=== PATIENT | male | born 1985 | race African-American/Black ===

== ENCOUNTER 2025-08-31 09:24 | Emergency (ER) | payer SELFPAY ==
[2025-08-31] VITALS (9 sets, daily range): BP systolic 118–139; BP diastolic 70–87; BMI 28.8
--- NOTE | 2025-08-31 10:24 | ED.GENMED ---
History of Present Illness
General
Chief Complaint: Weakness
Source: patient and family
Exam Limitations: none
Time Seen by Provider: 08/31/25 09:59
Nursing documentation reviewed up to this point in time: agreed with
History of Present Illness
History of Present Illness:
Patient is a healthy 40-year-old male who presents to the emergency department for evaluation of multiple complaints. His patient describes approximately 4 weeks of progressively worsening weakness, fatigue, lightheadedness. He also describes
diffuse joint pain in his bilateral lower extremities. In addition, he reports feeling short of breath with very minimal exertion. Patient denies any fever, productive cough, headache, or neck pain. No abdominal pain, vomiting, or diarrhea. He
did have 2 days of chest pain however this resolved yesterday.
Patient symptoms started while he was visiting family in [facility] approximately 4 weeks ago. He then returned to the [facility] 1 week after symptoms began. He did take prophylactic medication for malaria. Patient denies any known bug bites
or rashes.
He denies any history of similar symptoms. No known sick contacts.
Review of Systems
Review of Systems
Allergies reviewed?: Yes
All Other Systems: ROS reviewed and negative except as documented in HPI and ROS
Phy Exam
Physical Exam
Physical Exam:
Vitals: Patient's vital signs are stable. Afebrile
General: Patient is in no apparent distress
Skin: Warm and dry, no rashes or lesions
Head: Normocephalic, atraumatic
Eyes: Sclera nonicteric. EOMs intact. No nystagmus.
Throat: Protecting airway
Neck: Normal ROM, no cervical spine tenderness, no meningismus
Cardiac: Regular rate and rhythm, no murmurs.
Pulm: Normal respiratory effort. Lungs clear bilaterally
Abdomen: Abdomen soft without any areas of focal tenderness on exam.
Extremities: No evidence of cyanosis or edema. Strength 5/5 in bilateral upper and lower extremities
Neuro: AAOx3. Grossly intact
Psychiatric: Normal affect.
Course
Orders/Labs/Results
Orders:
Orders
08/31/25 10:16
0.9% Sodium Chloride 1000 ml [Nss] 1,000 ml IV BOLUS
08/31/25 10:17
Electrocardiogram (*1) Urgent
Reason for Study: Fatigue / Weakness
EKG- Treatment ONCE
08/31/25 10:19
Ketorolac [Toradol] 15 mg IV NOW STA
08/31/25 11:01
COVID-19 Antigen Urgent
Source: Nasal Swab
CPK [Creatine Phosphokinase] Urgent
Complete Blood Count/With Diff Urgent
Comprehensive Metabolic Panel Urgent
D-Dimer Urgent
Lyme Progressive Urgent
Monotest Urgent
Troponin I Urgent
Influenza A+B Rapid Molecular Urgent
MAUREEN Source: Nasal Swab
Specimen Description:
Respiratory Syncytial Virus Urgent
MAUREEN Source: Nasal Swab
Specimen Description:
Date Specimen was Collected: 08/31/25
Time Specimen was Collected: 10:46
08/31/25 11:36
Blood Parasites Urgent
MAUREEN Source: Blood/Venous
Specimen Description:
08/31/25 11:46
CR Chest - 2 Views Urgent
Comment:
Reason For Exam: SOB, weakness
08/31/25 12:17
Urinalysis Reflex To Culture Urgent
Date Specimen was Collected: 08/31/25
Time Specimen was Collected: 12:11
Urine Microscopic Reflex Cult Urgent
08/31/25 13:42
Renal Only US [US Renal Only W/O Bladder] Urgent
Comment:
Reason For Exam: elevated creatinine, proteinuria
Abnormal Lab Results
08/31/25 08/31/25
11:01 12:17
MCHC 32.9 L g/dL
(33.0-37.0)
Monocytes % 11.4 H %
(1.7-9.3)
Creatinine 1.4 H mg/dL
(0.7-1.3)
Glucose 100 H mg/dl
(70-99)
Creatine Kinase 374 H U/L
(55-170)
Total Protein 9.0 H g/dl
(6.3-8.2)
Urine Bacteria (Reflex) Few A
(Negative)
Urine Albumin (Reflex) 2+ A
(Neg - Trace)
08/31/25 11:01
08/31/25 11:01
Vital Signs
Initial and Last Documented VS:
Initial Vital Signs
Temp Pulse Resp BP Pulse Ox
98.3 F 67 16 139/78 100
08/31/25 09:25 08/31/25 09:25 08/31/25 09:25 08/31/25 09:25 08/31/25 09:25
Last Documented Vital Signs
Temp Pulse Resp BP Pulse Ox
98.3 F 63 17 126/70 100
08/31/25 09:25 08/31/25 16:15 08/31/25 16:15 08/31/25 16:00 08/31/25 16:15
MDM/Problems Addressed
Differential Diagnosis Includes:
Not limited to: Viral illness, acute dehydration, parasitic/tickborne illness, pericarditis, myocarditis, etc.
MDM/Problems Addressed:
40-year-old male with a few weeks of vague symptoms including fatigue, diffuse joint pain, lightheadedness. No fever or headaches. No new rash. No G.I. symptoms. He did recently travel to [place], however took prophylactic antibiotics during travel.
Vitals stable. Physical exam as above.
Patient has no rash. He has no meningeal signs. Abdomen is benign. He has no neurologic deficits.
Differential broad. Will check labs, viral studies, tick borne/parasite smears. Given reported mild SOB and recent travel � will screen with d-dimer. Will give IV fluids, Toradol, and reassess.
Thorough work up in emergency department largely unremarkable. Blood parasite/Lyme disease pending. He did have mild elevation in CPK and creatinine � possibly indicating dehydration. With 2+ protein noted I did discuss outpatient f/u to repeat UA
and r/o underlying renal disorder. Due to significant patient concern� a renal US was obtained, which shows no acute abnormalities.
He received a liter of IV fluids and Toradol. His symptoms have improved. No clear indication for admission to hospital as he is afebrile, nontoxic appearing, and hemodynamically stable. He is tolerating oral intake.
Will discharge home with close outpatient follow up with [facility] for consideration for specialists referral to r/o underlying rheumatologic vs renal disorder. Very strict return precautions discussed. Patient comfortable with plan.
Chronic conditions affecting care:
N/A
Acute Exacerbation and/or Progression of Chronic Illness:
N/A
*Radiology
Radiology exam reviewed: radiology read reviewed
*Pulse Oximetry
SaO2: 100
Oxygen Mode of Delivery: Room air
Patient hypoxic: no
*Piercing Artist Interpretation
Rate: normal
Interpretation: normal
Heart Rate: 65
Rhythm: sinus
*Critical Care Note
Total Time (30-74mins, 75-104mins- exclusive of procedures): Not Applicable
ED Attending Note
-
Portions of this chart may have been created with voice recognition software.� Occasional wrong word or��sound alike� substitutions may have occurred due to the inherent limitations of voice recognition software.
Discharge Plan
Departure
Patient Disposition: Home (Routine Discharge)
Date of Disposition: 08/31/25
Time of Disposition: 15:53
Patient with high blood pressure during this ER visit?: Yes
Condition: Good
Discharge Problem:
Fatigue, Joint pain
Instructions: Generalized Weakness (DC)
Referrals:
[facility] [Outside]
NONE,* [Family Provider, Internal Medicine]
Activity Restrictions/Additional Instructions:
RETURN TO THE EMERGENCY DEPARTMENT WITH ANY FEVERS, SEVERE HEADACHE OR NECK PAIN, SEVERE ABDOMINAL PAIN, INABILITY TO AMBULATE, INABILITY TO PRODUCE URINE, WORSENING IN CURRENT SYMPTOMS, OR ANY OTHER CONCERNS
- Your kidney function was mildly elevated today in the emergency department and you were found to have a small amount of protein in her urine. Please follow-up with the [facility] to establish further follow-up with nephrology.
- Your chest x-ray and kidney ultrasound showed no acute abnormalities. Your viral studies were negative.
- It is very important to stay well-hydrated. Please take Motrin as needed for pain.
- We will contact you if your additional testing comes back positive.
- Please follow-up with the [facility] in a few days for further evaluation and management and to ensure that your symptoms are improving
Monitor your symptoms very closely and return to the emergency department with any acute worsening/new symptoms or any other concerns
Interventions
Interventions:
*Risk Screen - Suicide Last Done: 08/31/25 11:12
*General Assessment Last Done: 08/31/25 11:12
*Neglect/Abuse Screening Last Done: 08/31/25 11:12
*ED COVID-19 Vaccine History Last Done: 08/31/25 11:12
*ED Influenza Vaccine History Last Done: 08/31/25 11:12
[facility] Fall Risk Assessment Tool Last Done: 08/31/25 11:10
*Nursing Disposition Last Done: 08/31/25 16:34
ED- Cardiac Assessment Last Done: 08/31/25 11:10
ED- Neurological Assessment Last Done: 08/31/25 11:10
ED- Pulmonary Assessment Last Done: 08/31/25 11:10
Discharge Date and Time
Discharge Date/Time: 08/31/25 16:36
Print Language: LATVIAN
[2025-08-31 11:16] LABS: Hematocrit 41.6 % (39.0-52.0); Hemoglobin 13.7 g/dL (13.0-18.0); Mean Corp Hgb Conc. 32.9 g/dL (33.0-37.0); Mean Corpuscular Volume 86.7 fL (80.0-94.0); Nucleated Red Blood Cells % 0 % (-); Platelet Count 160 10^3/uL (130-400); Red Cell Dist. Width 14.2 % (11.5-14.5)
[2025-08-31] MEDS: TORADOL 15 MG IV (11:22)
[2025-08-31] MEDS: NSS 1000 IV (11:24)
[2025-08-31 11:30] LABS: COVID-19 Antigen Negative (Negative)
[2025-08-31 11:31] LABS: D-Dimer 0.44 ug/mlFEU (0.00-0.50)
[2025-08-31 11:35] LABS: ALT (SGPT) 32 U/L (0-50); AST (SGOT) 27 U/L (17-59); Albumin 4.8 g/dl (3.5-5.0); Alkaline Phosphatase 42 U/L (38-126); Blood Urea Nitrogen 14 mg/dl (9-20); Calcium 9.3 mg/dl (8.4-10.2); Carbon Dioxide 28 mmol/L (22-30); Chloride 103 mmol/L (98-107); Glucose 100 mg/dl (70-99); Potassium 4.1 mmol/L (3.5-5.1); Sodium 136 mmol/L (135-145); Total Protein 9.0 g/dl (6.3-8.2); eGFR > 60.00
--- NOTE | 2025-08-31 11:43 | EDRN ---
Pt administered cup and wipes for urine sample
[2025-08-31 11:45] LABS: Troponin I < 0.012 ng/ml
[2025-08-31 12:37] LABS: Urine Character Clear (Clear)
[2025-08-31 13:13] LABS: Urine Red Blood Cell 0-2 /HPF (0-2)
[2025-08-31 13:14] LABS: Urine White Cell 0-2 /HPF (0-5)
== END 2025-08-31 16:36 | disposition home or self-care (01) ==
LOC: EMR 09:24
PROVIDERS: Physician Assistant; EMERGENCY PHYSICIAN Student in an Organized Health Care Education/Training Program
DX: R53.1 Weakness (principal); R06.02 Shortness of breath; Z11.52 Encounter for screening for COVID-19
CPT/HCPCS: 99285; 96374; 96361; 71046; 76775; 80053; 81003; 81015; 82550; 84484; 85025; 85379; 86308; 86618; 87015; 87207; 87502; 87807; 87811; 93005